=== PATIENT | female | born 1995 | race Caucasian/White ===

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

== ENCOUNTER 2017-05-02 17:44 | Emergency (ER) | payer OTHER ==
[~2017-05-02] VITALS: Ht 170.2 cm; Wt 67.1 kg
[2017-05-02 17:45] VITALS: Ht 170.2 cm; Wt 67.1 kg
[2017-05-02 19:54] VITALS: BP 114/59
== END 2017-05-02 19:54 | disposition home or self-care (01) ==
LOC: ED 17:44
DX: J06.9 Acute upper respiratory infection, unspecified (principal)
CPT/HCPCS: J7613